=== PATIENT | female | born 2000 | race Caucasian/White ===

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

== ENCOUNTER 2020-08-14 12:00 | Emergency (ER) | payer SELFPAY ==
[2020-08-14 12:36] LABS: Bilirubin Negative (Negative); Blood, Urine Negative (Negative); Clarity Clear (Clear); Glucose, Urine (Dipstick) Normal (Negative); Ketone, Urine Negative (Negative); Leukocyte 75 Leu/uL (Negative); Nitrite Negative (Negative); Protein, Urine (Dipstick) 20 mg/dL (Neg-Trace); RBC/HPF 0-3 HPF (0-3); Specific Gravity, Urine 1.031 (1.002-1.036); Urobilinogen 3 mg/dL (Less than 2); WBC/HPF 0-3 HPF (0-3); pH, Urine 6.5 (5.0-9.0)
[2020-08-14 12:37] LABS: Pregnancy Test - Urine (BHCG) Negative (Negative); Pregu Control Background? CLEAR/WHITE (CLR/WHITE); Pregu Control Bar Appear? YES (CONTROL BAR); Specific Gravity 1.031 (1.002-1.036)
[2020-08-14] MEDS ORDERED: Ondansetron ODT 4 MG TAB ONE (12:44)
[2020-08-14 12:48] LABS: Bacteria/HPF 1+ HPF (None Seen)
== END 2020-08-14 13:54 | disposition home or self-care (01) ==
LOC: ERS 12:00
DX: B34.9 Viral infection, unspecified (principal)
CPT/HCPCS: 81003; 81015; 81025; 99284; Q0162

== ENCOUNTER 2022-12-08 14:55 | Emergency (ER) | payer OTHER, SELFPAY ==
[2022-12-08] MEDS ORDERED: Ibuprofen 200 MG TAB ONE (16:22)
[2022-12-08] MEDS ORDERED: Acetaminophen 500 MG TAB ONE (16:22)
== END 2022-12-08 16:38 | disposition home or self-care (01) ==
LOC: ERS 14:55
DX: S13.4XXA Sprain of ligaments of cervical spine, initial encounter (principal); M54.9 Dorsalgia, unspecified; V49.9XXA Car occupant (driver) (passenger) injured in unspecified traffic accident, initial encounter
CPT/HCPCS: 99283

== ENCOUNTER 2025-10-01 22:40 | Emergency (ER) | payer OTHER | END 2025-10-02 00:44 | disposition home or self-care (01) | LOC: ERS 22:40 | DX: T22.212A Burn of second degree of left forearm, initial encounter (principal); Z23 Encounter for immunization; X10.2XXA Contact with fats and cooking oils, initial encounter; Y93.G3 Activity, cooking and baking | CPT/HCPCS: 90471; 90715 ==